=== PATIENT | female | born 1990 | race Caucasian/White ===

== ENCOUNTER 2021-10-20 06:13 | Inpatient (IN) | payer OTHER ==
[2021-10-20] MEDS ORDERED: SODIUM CHLORIDE 0.9% 500 ML INFUS.BAG IV ONE ×2 (08:19→12:17)
[2021-10-20] MEDS ORDERED: ACETAMINOPHEN 1000 MG/100 ML VIAL IVPB ONE (08:19)
[2021-10-20] MEDS ORDERED: ACETAMINOPHEN INJECTION 100 ML IVPB ONE (08:35)
[2021-10-20 08:58] LABS: BASO % 0.2 % (0-2.0); HEMATOCRIT 27.7 % (32.4-45.2); HEMOGLOBIN 8.6 GM/dL (10.7-15.3); LYMPH % 8.2 % (8-40); MCH 21.7 pg (25.7-33.7); MCHC 31.2 g/dl (32.0-36.0); MEAN CELL VOLUME 69.6 fl (80-96); MEAN PLT VOLUME 7.1 fl (7.5-11.1); MONO % 7.5 % (3.8-10.2); NEUT % 84.1 % (42.8-82.8); PLATELET COUNT 319 10^3/uL (134-434); RBC 3.97 M/mm3 (3.60-5.2); RDW 16.2 % (11.6-15.6); WHITE BLOOD COUNT 11.3 K/mm3 (4.0-10.0)
[2021-10-20 09:03] LABS: EPI CELLS 22 /uL (0-25.1); HYALINE CASTS 0 /uL (0-3.1); PH,URINE 6.5 (5.0-8.0); URINE APPEARANCE CLEAR; URINE BACTERIA 296 /uL (0-1359); URINE BILIRUBIN NEGATIVE (NEGATIVE); URINE COLOR YELLOW; URINE GLUCOSE (UA) NEGATIVE (NEGATIVE); URINE KETONE 1+ (NEGATIVE); URINE LEUK ESTERASE 1+ (NEGATIVE); URINE NITRITE NEGATIVE (NEGATIVE); URINE PROTEIN NEGATIVE (NEGATIVE); URINE RBC 0 /uL (0-23.9); URINE UROBILINOGEN 0.2 mg/dL (0.2-1.0); URINE WBC 29 /uL (0-25.8)
[2021-10-20 09:04] LABS: ALBUMIN 3.6 g/dl (3.4-5.0); BLOOD UREA NITROGEN 14.3 mg/dL (7-18); CALCIUM 8.7 mg/dL (8.5-10.1); HCG,QUALITATIVE URINE Negative
[2021-10-20 09:09] LABS: BILIRUBIN,TOTAL 0.8 mg/dL (0.2-1); TOT PROT 6.8 g/dl (6.4-8.2)
[2021-10-20] MEDS ORDERED: TAMSULOSIN HCL 0.4 MG CAP PO ONE (12:03)
[2021-10-20] MEDS ORDERED: CEFTRIAXONE 1 GM in DEXTROSE 5%-WATER - 50 ML IVPB SCH (12:15)
[2021-10-20] MEDS ORDERED: ACETAMINOPHEN 325 MG TABLET (FP) PO PRN (12:16)
[2021-10-20] MEDS ORDERED: KETOROLAC TROMETHAMINE 15 MG/ML VIAL IM PRN (12:17)
[2021-10-20] MEDS ORDERED: TAMSULOSIN HCL 0.4 MG CAP ONE (12:20)
[2021-10-20] MEDS ORDERED: SODIUM CHLORIDE 1,000 ML IV SCH (12:30)
[2021-10-20] MEDS: SODIUM CHLORIDE 1,000 ML IV SCH ×2 (12:30→16:50)
[2021-10-20 17:42] VITALS: BMI 19.8
[2021-10-21] MEDS ORDERED: TAMSULOSIN HCL 0.4 MG CAP PO SCH (08:30)
[2021-10-21] MEDS ORDERED: SODIUM CHLORIDE 1,000 ML IV STA (08:55)
[2021-10-21] MEDS ORDERED: PIPERACILLIN/TAZOB 3.375 GM 3.375 GM in DEXTROSE 5%-WATER - 50 ML IVPB ONE (08:56)
[2021-10-21] MEDS ORDERED: CEFTRIAXONE 1 GM in DEXTROSE 5%-WATER - 50 ML IVPB SCH (10:00)
[2021-10-21 10:24] LABS: BASO % 0.4 % (0-2.0); EOS % 0.5 % (0-4.5); HEMATOCRIT 26.8 % (32.4-45.2); HEMOGLOBIN 8.3 GM/dL (10.7-15.3); LYMPH % 27.9 % (8-40); MCH 22.2 pg (25.7-33.7); MEAN CELL VOLUME 71.6 fl (80-96); MEAN PLT VOLUME 7.4 fl (7.5-11.1); MONO % 8.4 % (3.8-10.2); NEUT % 62.8 % (42.8-82.8); PLATELET COUNT 287 10^3/uL (134-434); RBC 3.75 M/mm3 (3.60-5.2); RDW 16.5 % (11.6-15.6); WHITE BLOOD COUNT 4.7 K/mm3 (4.0-10.0)
[2021-10-21 10:40] LABS: CALCIUM 8.1 mg/dL (8.5-10.1)
[2021-10-21 10:41] LABS: BLOOD UREA NITROGEN 15.6 mg/dL (7-18)
[2021-10-21 10:44] LABS: CREATININE 0.6 mg/dL (0.55-1.3)
[2021-10-21] MEDS ORDERED: DEXTROSE 5%-WATER - 50 ML IVPB ONE (10:44)
[2021-10-21] MEDS ORDERED: cefTRIAXone SODIUM 1 GM VIAL ONE (10:44)
[2021-10-21 14:31] VITALS: BP 91/54; PULSE 94; TEMP 98.7
== END 2021-10-21 16:37 | disposition left against medical advice (07) | DRG 720 ==
LOC: JER 06:13 → JERBED 12:05 → J6S 17:29
PROVIDERS: ADMIT Internal Medicine; ATTEND Internal Medicine
DX: A41.9 Sepsis, unspecified organism (principal); I95.9 Hypotension, unspecified; D50.9 Iron deficiency anemia, unspecified; D72.829 Elevated white blood cell count, unspecified; N13.6 Pyonephrosis; R11.2 Nausea with vomiting, unspecified; R50.9 Fever, unspecified
CPT/HCPCS: 36415; 71046-TC-FY; 74176-TC; 76775-TC; 80048; 80053; 81003; 82728; 83540; 83550; 84443; 84703; 85025; 86850; 86900; 86901; 87040; 87077; 87086; 87491; 87591; 87661; 93005; 93010; 99285-25; C9803; J0131; U0003; U0005

== ENCOUNTER 2023-04-05 08:12 | Day surgery (SDC) | payer OTHER ==
[~2023-04-05 08:12] MED LIST: IRON SUCROSE INJECTION 300 MG in SODIUM CHLORIDE 250 ML IVPB ONE
[2023-04-05] MEDS ORDERED: diphenhydrAMINE HCL 25 MG CAPSULE (FP) PO ONE (09:30)
[2023-04-05] MEDS ORDERED: IRON SUCROSE INJECTION 300 MG in SODIUM CHLORIDE 250 ML IVPB ONE (10:00)
[2023-04-05 14:13] VITALS: RESP 18; TEMP 98.4
[2023-04-05 14:19] VITALS: BP 101/40; PULSE 89
== END 2023-04-05 12:00 | disposition home or self-care (01) ==
LOC: JONCNONCHE 08:12 → J7W 08:15 → JONCNONCHE 12:00
PROVIDERS: ATTEND Internal Medicine Hematology & Oncology
PROC: 3E033GC Introduction of Other Therapeutic Substance into Peripheral Vein, Percutaneous Approach (ICD-10-PCS; principal; 2023-04-05)
DX: D50.9 Iron deficiency anemia, unspecified (principal)
CPT/HCPCS: 96365; J1756

== ENCOUNTER 2023-04-12 08:21 | Day surgery (SDC) | payer OTHER ==
[2023-04-12] MEDS ORDERED: diphenhydrAMINE HCL 25 MG CAPSULE (FP) PO ONE (08:45)
[2023-04-12] MEDS ORDERED: ACETAMINOPHEN 325 MG TABLET (FP) PO ONE (10:00)
[2023-04-12] MEDS ORDERED: IRON SUCROSE INJECTION 300 MG in SODIUM CHLORIDE 250 ML IVPB ONE (10:30)
[2023-04-12 12:56] VITALS: BP 90/47; PULSE 76; RESP 18; TEMP 98.3
== END 2023-04-12 11:40 | disposition home or self-care (01) ==
LOC: JONCNONCHE 08:21 → J7W 09:39 → JONCNONCHE 11:40
PROVIDERS: ATTEND Internal Medicine Hematology & Oncology
PROC: 3E033GC Introduction of Other Therapeutic Substance into Peripheral Vein, Percutaneous Approach (ICD-10-PCS; principal; 2023-04-12)
DX: D50.9 Iron deficiency anemia, unspecified (principal)
CPT/HCPCS: 96365; J1756

== ENCOUNTER 2023-04-14 23:41 | Emergency (ER) | payer OTHER ==
[2023-04-14 23:49] VITALS: BP 103/61; PULSE 86; RESP 18; TEMP 99
[2023-04-15 00:41] LABS: THROAT:GRP A STREP NOT DETECTED (NOTDETECTED)
== END 2023-04-15 01:06 | disposition home or self-care (01) ==
LOC: JER 23:41
DX: R07.0 Pain in throat (principal); J02.9 Acute pharyngitis, unspecified; Z20.822 Contact with and (suspected) exposure to COVID-19
CPT/HCPCS: 0241U-QW; 87651; 99283-25

== ENCOUNTER 2023-04-19 14:36 | Day surgery (SDC) | payer OTHER ==
[~2023-04-19 14:36] MED LIST changes: +ACETAMINOPHEN 325 MG TABLET (FP) PO ONE; +diphenhydrAMINE HCL 25 MG CAPSULE (FP) PO ONE
[2023-04-19 18:10] VITALS: BP 93/49; PULSE 74; RESP 18; TEMP 98.3
== END 2023-04-19 17:30 | disposition home or self-care (01) ==
LOC: J7W 14:36 → JONCNONCHE 14:36
PROVIDERS: ATTEND Internal Medicine Hematology & Oncology
PROC: 3E033GC Introduction of Other Therapeutic Substance into Peripheral Vein, Percutaneous Approach (ICD-10-PCS; principal; 2023-04-19)
DX: D50.9 Iron deficiency anemia, unspecified (principal)
CPT/HCPCS: 96365; J1756

== ENCOUNTER 2023-04-26 09:49 | Day surgery (SDC) | payer OTHER ==
[2023-04-26] MEDS ORDERED: diphenhydrAMINE HCL 25 MG CAPSULE (FP) PO ONE (10:00)
[2023-04-26] MEDS ORDERED: ACETAMINOPHEN 325 MG TABLET (FP) PO ONE (10:00)
[2023-04-26] MEDS ORDERED: IRON SUCROSE INJECTION 300 MG in SODIUM CHLORIDE 250 ML IVPB ONE (10:30)
[2023-04-26 16:22] VITALS: BP 97/64; PULSE 70; RESP 18; TEMP 98.5
== END 2023-04-26 12:30 | disposition home or self-care (01) ==
LOC: JONCNONCHE 09:49 → J7W 09:50 → JONCNONCHE 12:30
PROVIDERS: ATTEND Internal Medicine Hematology & Oncology
PROC: 3E033GC Introduction of Other Therapeutic Substance into Peripheral Vein, Percutaneous Approach (ICD-10-PCS; principal; 2023-04-26)
DX: D50.9 Iron deficiency anemia, unspecified (principal)
CPT/HCPCS: 96365; J1756